=== PATIENT | male | born 1935 | race Caucasian/White ===

== ENCOUNTER → 2016-11-16 | Outpatient (CLI) | payer OTHER | LOC: FIMAGING 18:42 | PROVIDERS: ATTEND Physician Assistant | DX: M23.341 Other meniscus derangements, anterior horn of lateral meniscus, right knee (principal); M23.221 Derangement of posterior horn of medial meniscus due to old tear or injury, right knee; M25.461 Effusion, right knee; M23.41 Loose body in knee, right knee; M22.41 Chondromalacia patellae, right knee ==

== ENCOUNTER → 2016-12-11 | Outpatient (CLI) | payer OTHER | LOC: BMCIMAGING 14:31 | PROVIDERS: ATTEND Internal Medicine | DX: R06.6 Hiccough (principal); J44.9 Chronic obstructive pulmonary disease, unspecified ==

== ENCOUNTER 2017-01-06 08:36 | Inpatient (IN) | payer OTHER ==
[~2017-01-06 08:36] MED LIST: ACETAMINOPHEN 325 MG TAB PO ONE; CEFAZOLIN 2 GM/DEXTR 100 ML IV ONE; CHLORHEXIDINE GLUC HIBICLENS 118 ML BTL TP ONE; DEXAMETHASONE 4 MG/ML VIAL IVP ONE; FAMOTIDINE 20 MG TAB PO ONE; ROPI/epiNEPH/KETOROLAC JOINT COCKTAIL IU ONE; TRANEXAMIC ACID 3,000 MG in NS 50 ML IRR ONE; TRANEXAMIC ACID 3,000 MG/50 ML BAG IRR ONE; VANCOMYCIN 1 GM VIAL ONE
[2017-01-06] MEDS ORDERED: fentaNYL 100 MCG/2 ML INJ ONE ×2 (09:58→13:04)
[2017-01-06] MEDS ORDERED: PROPOFOL/EMULSION 500 MG/50 ML BOTTLE IV ONE (10:00)
[2017-01-06] MEDS ORDERED: FAMOTIDINE 20 MG TAB ONE (10:11)
[2017-01-06] MEDS ORDERED: CEFAZOLIN 2 GM/DEXTROSE/100 ML BAG IV ONE (10:11)
[2017-01-06] MEDS ORDERED: ACETAMINOPHEN 325 MG TAB ONE (10:11)
[2017-01-06] MEDS ORDERED: DEXAMETHASONE 4 MG/ML VIAL ONE (10:11)
[2017-01-06] MEDS ORDERED: LR 1,000 ML IV ONE (10:32)
[2017-01-06] MEDS ORDERED: MIDAZOLAM 2 MG/2 ML VIAL ONE (10:53)
[2017-01-06] MEDS ORDERED: ONDANSETRON 4 MG/2 ML VIAL ONE (11:34)
[2017-01-06] MEDS ORDERED: PROMETHAZINE HCL 25 MG SUPPR PR PRN (12:37)
[2017-01-06] MEDS ORDERED: MAGNESIUM HYDROXIDE 30 ML UDCUP PO PRN (12:37)
[2017-01-06] MEDS ORDERED: ONDANSETRON 4 MG/2 ML VIAL IVP PRN (12:37)
[2017-01-06] MEDS ORDERED: LACTULOSE 20 GM/30 ML UDCUP PO PRN (12:37)
[2017-01-06] MEDS ORDERED: PROMETHAZINE HCL 25 MG/ML INJ IVP PRN (12:37)
[2017-01-06] MEDS ORDERED: PHARMACY PAIN CONSULT 1 EA MISC PRN (12:37)
[2017-01-06] MEDS ORDERED: DIPHENOXYLATE/ATROPINE LOMOTIL 1 TAB PO PRN (12:37)
[2017-01-06] MEDS ORDERED: diphenhydrAMINE 25 MG CAP PO PRN (12:37)
[2017-01-06] MEDS ORDERED: ONDANSETRON DISINTEGRATING 4 MG TAB PO PRN (12:37)
[2017-01-06] MEDS ORDERED: BISACODYL 10 MG SUPP PR PRN (12:37)
[2017-01-06] MEDS ORDERED: METOCLOPRAMIDE 10 MG/2 ML VIAL IVP PRN (12:37)
--- NOTE | 2017-01-06 12:37 | POSTOPPROG ---
Post Op Note Date of Operation: 01/06/17 Surgeon: Jose Miguel Woodson Endocrinology Teacher: ari woodson Anesthesiologist: dr. neves Anesthesia: Spinal, Other (Specify) (adductor canal block) Pre-op Diagnosis: right knee OA Post-op Diagnosis: same Indication: right knee pain due to OA that failed conservative measures Procedure: R TKA Findings: severe knee OA Inf/Abcess present in the surg proc area at time of surgery?: No EBL: 50-100
[2017-01-06] MEDS ORDERED: LR 1,000 ML IV SCH (13:00)
[2017-01-06] MEDS ORDERED: HYDROmorphONE/DILAUDID 1 MG/ML SYR ONE (13:51)
[2017-01-06] MEDS: oxyCODONE IR 5 MG TAB PO PRN (16:25)
[2017-01-06] MEDS: amLODIPine BESYLATE 5 MG TAB PO SCH (17:36)
[2017-01-06] MEDS: ACETAMINOPHEN 325 MG TAB PO SCH ×2 (17:36→22:30)
[2017-01-06] MEDS: ATORVASTATIN CALCIUM 10 MG TAB PO SCH (17:36)
[2017-01-06] MEDS: ceFAZolin 2 GM/DEXTROSE 100 ML IV SCH (18:00)
[2017-01-06] MEDS ORDERED: NON-FORMULARY NEW DRUG (Fluticasone Nasal [Flonase Nasal Spray] 2 SPRAYS) NASAL SCH (21:00)
[2017-01-06] MEDS: ASPIRIN 325 MG TAB PO SCH (22:30)
[2017-01-06] MEDS: FAMOTIDINE 20 MG TAB PO SCH (22:31)
[2017-01-06] MEDS: FERROUS SULFATE 325 MG TAB PO SCH (22:31)
[2017-01-06] MEDS: SENNOSIDES/DOCUSATE SODIUM TAB PO SCH (22:31)
[2017-01-06] MEDS: FLUTICASONE NASAL 120 SPRAYS/16 GM MDI EACHNARE SCH (22:35)
[2017-01-06] MEDS: TEMAZEPAM 15 MG CAP PO PRN (23:23)
[2017-01-07] MEDS: oxyCODONE IR 5 MG TAB PO PRN ×4 (01:03→22:21)
[2017-01-07] MEDS: ceFAZolin 2 GM/DEXTROSE 100 ML IV SCH (03:16)
[2017-01-07 05:28] LABS: HEMATOCRIT 34.2 % (40.0-51.0); HEMOGLOBIN 12.4 g/dL (13.7-17.5)
[2017-01-07 05:35] LABS: ANION GAP 10 mEq/L (8-16); CALCIUM 8.7 mg/dL (8.5-10.4); CARBON DIOXIDE 23 mEq/l (22-31); CHLORIDE 93 mEq/L (97-110); CREATININE 0.9 mg/dL (0.7-1.3); GLOMERULAR FILTRATION RATE > 60; GLUCOSE 112 mg/dL (70-100); POTASSIUM 4.1 mEq/L (3.5-5.2); SODIUM 126 mEq/L (134-144)
--- NOTE | 2017-01-07 05:45 | GOP ---
[f rep st] OPERATIVE REPORT DATE OF OPERATION: 01/06/2017 SURGEON: Leonarda Coleman MD BRICK STACKER: RADHA Sharp. ANESTHESIA: Spinal. PREOPERATIVE DIAGNOSIS: Right knee osteoarthritis. POSTOPERATIVE DIAGNOSIS: Right knee osteoarthritis. PROCEDURE PERFORMED: Right total knee arthroplasty. FINDINGS: Severe lateral and PF DJD ESTIMATED BLOOD LOSS: 30 cc. INDICATIONS: This is an 81-year-old male with severe and progressive pain and deformity of the right knee unresponsive to conservative care. Risks and benefits of the surgical intervention were explained in detail. DESCRIPTION OF PROCEDURE: The patient was brought to the operative room and placed on the table in the supine position. Spinal anesthesia was induced without difficulty. A pneumatic tourniquet was applied about the right proximal thigh, and the leg was prepped and draped in a sterile fashion. The leg medina was applied. After exsanguination by elevation the tourniquet was inflated to 275 mm of mercury. Incision was made anterior medial from the tibial tuberosity to a point 2 cm proximal to the superior pole of the patella. Medial parapatellar arthrotomy was carried out from the superior pole of the patella and posteriorly in line with the fibers of the Type 2 VMO. The medial collateral ligament was elevated and the infrapatellar fat pad was resected. The patella was everted and the articular surface was excised. A 38 mm patellar button was placed. The distal femoral guide hole was drilled and the 60 degree alignment kyle was placed. A 10 mm distal femoral cut was made without difficulty. Attention was turned to the tibia and a standard 6 mm cut based on the medial tibia condyle was performed. The tibial articular surface was excised without difficulty. Attention was turned back to the femur and a size 6 femoral cutting block was positioned. Anterior, posterior, and chamfer cuts were made, followed by the intercondylar box cut. The knee was extended and the remnants of the medial and lateral meniscus were excised. The posterior capsule was injected with ropivacaine, epinephrine and Toradol. A size 6 tibial tray was positioned. Trial reduction was then carried out. There was excellent range of motion, alignment, and stability using the 9 mm polyethylene. All trials were then removed. The joint was thoroughly irrigated and carefully dried. Two packages of cement and 2 grams of vancomycin were mixed in the vacuum mixer and placed on the fixation surfaces of all surfaces of the components. The components were implanted and all excess cement was thoroughly removed. The permanent 9 mm polyethylene was placed without difficulty. The tourniquet was deflated and all bleeders were coagulated. The wound was thoroughly irrigated and closed using interrupted sutures of 2-0 Vicryl for the joint capsule. The subcu was closed with 3-0 Vicryl and the skin with 4-0 Monocryl. Dermabond and Steri-Strips were applied followed by a compressive dressing. The patient was then moved from the operating room to the recovery room in good condition, having tolerated the procedure well. TOURNIQUET: 275 mmHg. PATHOLOGY: Severe lateral and patellofemoral osteoarthritis. /[id number]/MODL MTDD
[2017-01-07] MEDS: PANTOPRAZOLE SODIUM 40 MG TAB PO SCH (06:22)
[2017-01-07] MEDS: ACETAMINOPHEN 325 MG TAB PO SCH ×4 (06:22→22:21)
[2017-01-07] MEDS ORDERED: NON-FORMULARY NEW DRUG (Omeprazole [Prilosec 20 Mg] 20 MG) PO SCH (07:30)
--- NOTE | 2017-01-07 08:28 | SOAPPROG ---
SOAP Progress Note Assessment/Plan: Assessment: Patient is doing well POD 1 s/p R TKA Pain management: pain is well controlled on oral pain meds. VTE ppx: recommend aspirin daily for 3 weeks, cont ISRAEL and SCDs Anemia: level is expected initially postop. Asymptomatic. Continue to monitor D/c planning: d/c to home today pending release from PT, plan for urinary retention urinary retention: will consult urology for assistance managing postop urinary retention. Patient has been straight cath'd twice and has not urinated since surgery. Hyponatremia: recommend restricting fluid intake 1L per day. Na today 126 Plan: 01/07/17 08:25 Subjective: Misha is doing well from a knee standpoint, but is having urinary retention issues. Denies SOB, chest pain and N/V. Objective: Vital Signs Temp Pulse Resp BP Pulse Ox 36.4 C 70 16 124/68 H 97 01/07/17 04:28 01/07/17 04:28 01/07/17 04:28 01/07/17 04:28 01/07/17 04:28 Laboratory Results 01/07/17 05:06 01/07/17 05:06 01/06/17 01/07/17 01/08/17 05:59 05:59 05:59 Intake Total 2490 Output Total 1380 Balance 1110 RLE: incision dressing is clean and dry, NVI, +pf/df ICD10 Worksheet Patient Problems: Problems Problem Status Onset Primary localized osteoarthritis of right knee Acute
[2017-01-07] MEDS: SENNOSIDES/DOCUSATE SODIUM TAB PO SCH ×2 (09:36→22:09)
[2017-01-07] MEDS: ASPIRIN 325 MG TAB PO SCH (09:36)
[2017-01-07] MEDS: FAMOTIDINE 20 MG TAB PO SCH ×2 (09:36→22:10)
[2017-01-07] MEDS: LISINOPRIL 20 MG TAB PO SCH (09:36)
[2017-01-07] MEDS: valACYclovir 500 MG TAB PO SCH (09:37)
[2017-01-07] MEDS: FLUTICASONE NASAL 120 SPRAYS/16 GM MDI EACHNARE SCH ×2 (09:38→22:26)
[2017-01-07] MEDS: POLYETHYLENE GLYCOL 3350 17 GM PKT PO PRN ×2 (09:41→09:45)
[2017-01-07] MEDS: CYCLOBENZAPRINE 10 MG TAB PO PRN ×2 (10:01→18:14)
--- NOTE | 2017-01-07 12:54 | SOAPPROG ---
SOAP Progress Note Assessment/Plan: Assessment: Postop urinary retention - see dictated consultation (# [id number]) Plan: Discharge w/ indwelling Le. Removal at home on Wednesday AM, FU thereafter to be dictated on subsequent ability to void. Objective: Vital Signs Temp Pulse Resp BP Pulse Ox 36.6 C 77 16 135/75 H 98 01/07/17 11:25 01/07/17 11:25 01/07/17 11:25 01/07/17 11:25 01/07/17 11:25 Laboratory Results 01/07/17 05:06 01/07/17 05:06 01/06/17 01/07/17 01/08/17 05:59 05:59 05:59 Intake Total 2490 Output Total 1380 Balance 1110 ICD10 Worksheet Patient Problems: Problems Problem Status Onset Primary localized osteoarthritis of right knee Acute
--- NOTE | 2017-01-07 14:00 | GCON ---
[f rep st] CONSULTATION UROLOGY CONSULTATION NOTE DATE OF CONSULTATION: 01/07/2017 REFERRING PHYSICIAN: Leonarda Coleman MD REASON FOR CONSULTATION: Postoperative urinary retention. HISTORY: This is an 81-year-old gentleman who is well known to my practice with a longstanding hist ory of incomplete urinary emptying and partial retention. He underwent a right total knee arthropla sty yesterday and has been unable to void since then. He was initially on straight catheterization, but was unable to void between those episodes. Le catheter was then inserted which the patient has indwelling at this time. The patient did undergo an inguinal herniorrhaphy late last year, and did not have any issues with postoperative urinary retention at that time. His past urologic history is notable for long-standing partial retention, with residuals ranging fro m 400 to greater than 800 cc. He has no evidence of outflow obstruction based on prior cystoscopy. He has previously undergone open suprapubic subtotal prostatectomy, approximately 20 years ago and, more recently, transurethral resection of bladder neck contracture, in September 2012. His urine pa rtial retention has persisted despite the most recent procedure. The patient denies any history of dysuria, gross hematuria. No recent treatment for UTIs. He has been experiencing nocturia typicall y twice nightly, which is his long-standing baseline. PAST MEDICAL HISTORY: Notable for gout, hypertension, high cholesterol, hypothyroidism, mitral valv e disorder, osteoporosis, peripheral neuropathy, sleep apnea, partial urinary retention. PAST SURGICAL HISTORY: Includes right total knee arthroplasty yesterday (as above), inguinal hernio rrhaphy approximately May 2016, transurethral resection of bladder neck contracture in September 2012, open subtotal suprapubic prostatectomy in May 1997. ADMISSION MEDICATIONS: Include Norvasc 5 mg daily, aspirin 325 mg daily, Lipitor 10 mg daily, Celeb craig 200 mg daily, Flexeril 10 mg q.8 hours p.r.n., Benadryl 25 mg q.4 hours p.r.n., Lomotil 1 p.o. q .i.d. p.r.n., Pepcid 20 mg b.i.d., iron sulfate 325 mg q.h.s., lactulose 20 mg t.i.d. p.r.n., Zestri l 20 mg daily, Restoril 15 mg q.h.s. p.r.n., Valtrex 500 mg daily. Additional home medications include Cialis 20 mg p.r.n., Flonase, oxycodone p.r.n. pain. MEDICAL ALLERGIES: None known. FAMILY HISTORY: Not contributory. SOCIAL HISTORY: The patient is single and lives in the [place] area. 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 He has 2 grown children, including 1 son who lives in [place]. He has a 20-pac k-year smoking history from use prior to age 34. He consumes 1-2 alcoholic drinks weekly. REVIEW OF SYSTEMS: Unremarkable, other than mentioned above in the HPI and Past Medical History. PHYSICAL EXAMINATION: GENERAL: Well-developed, well-nourished white male, lying upright in bed, in no acute distress. VITAL SIGNS: Blood pressure 135/75, pulse 77, respirations 16, oxygen saturati on 98% on room air, temperature 36.6 Celsius. HEENT: Normocephalic, atraumatic. NECK: Supple. H EART: Regular rate. CHEST: Unlabored respiratory pattern. ABDOMEN: Soft without palpable abnorm alities. GENITALIA: A 16-Thai Le catheter in place, draining clear urine. NEUROLOGIC: He is alert and oriented. He answers all questions appropriately with normal mood and affect. PERTINENT LABORATORY: On 01/07/2017, chemistry panel notable for a sodium 126 with normal renal fun ction (creatinine 0.9). IMPRESSION: Postoperative urinary retention in this patient with history of significant baseline pa rtial urinary retention. PLAN: 1. Continue indwelling Le catheter following discharge. 2. Instructions have been provided to have the nursing staff teach the patient on Le catheter re moval next Wednesday morning at 0800. I will have my office touch base with him later that day to make sure he is adequately voiding spontaneously. If not, he will come to the office for Le catheter replacement later on Wednesday. Thank you for this consultation. /[id number]/MODL
[2017-01-07] MEDS: ATORVASTATIN CALCIUM 10 MG TAB PO SCH (18:09)
[2017-01-07] MEDS: amLODIPine BESYLATE 5 MG TAB PO SCH (18:10)
[2017-01-07] MEDS: TEMAZEPAM 15 MG CAP PO PRN (22:09)
[2017-01-07] MEDS: FERROUS SULFATE 325 MG TAB PO SCH (22:10)
[2017-01-08 04:53] LABS: HEMATOCRIT 34.9 % (40.0-51.0); HEMOGLOBIN 12.3 g/dL (13.7-17.5)
[2017-01-08 05:25] LABS: ANION GAP 6 mEq/L (8-16); CALCIUM 9.1 mg/dL (8.5-10.4); CARBON DIOXIDE 24 mEq/l (22-31); CHLORIDE 101 mEq/L (97-110); GLOMERULAR FILTRATION RATE > 60; GLUCOSE 105 mg/dL (70-100); POTASSIUM 4.4 mEq/L (3.5-5.2); SODIUM 131 mEq/L (134-144)
[2017-01-08] MEDS: ACETAMINOPHEN 325 MG TAB PO SCH ×2 (06:26→12:23)
[2017-01-08] MEDS: CYCLOBENZAPRINE 10 MG TAB PO PRN (08:01)
[2017-01-08] MEDS: SENNOSIDES/DOCUSATE SODIUM TAB PO SCH (08:02)
[2017-01-08] MEDS: ASPIRIN 325 MG TAB PO SCH (08:02)
[2017-01-08] MEDS: FAMOTIDINE 20 MG TAB PO SCH (08:02)
[2017-01-08] MEDS: oxyCODONE IR 5 MG TAB PO PRN ×2 (08:02→15:08)
[2017-01-08] MEDS: valACYclovir 500 MG TAB PO SCH (08:02)
[2017-01-08] MEDS: PANTOPRAZOLE SODIUM 40 MG TAB PO SCH (08:02)
[2017-01-08] MEDS: LISINOPRIL 20 MG TAB PO SCH (08:03)
[2017-01-08] MEDS: FLUTICASONE NASAL 120 SPRAYS/16 GM MDI EACHNARE SCH (08:09)
[2017-01-08] MEDS: POLYETHYLENE GLYCOL 3350 17 GM PKT PO PRN (08:17)
[2017-01-08 08:58] VITALS: RESP 18
--- NOTE | 2017-01-08 11:05 | PDIAF ---
- Diagnosis Diagnosis: Right knee OA Code Status: Full Code - Medication Management Discharge Medications: Medications to Continue on Transfer Ascorbic Acid [Vitamin C 500 mg (*)] 1,000 mg PO HS 09/20/12 [Last Taken ] Calcium Carbonate [Oyster Shell Calcium 500 mg (*)] 500 mg PO BIDMEAL 09/20/12 [ Last Taken 12/30/16] Lisinopril [Zestril 20 mg (*)] 20 mg PO DAILY 09/20/12 [Last Taken 01/05/17] Omeprazole [Prilosec 20 mg] 20 mg PO DAILYAC 09/20/12 [Last Taken 01/06/17] Valacyclovir HCl [Valacyclovir] 500 mg PO DAILY 09/20/12 [Last Taken 01/06/17] amLODIPine BESYLATE [Norvasc 5 mg (*)] 5 mg PO DAILY@1830 09/20/12 [Last Taken 01/05/17] Fluticasone Nasal [Flonase Nasal [place]] 2 sprays NASAL BID 05/18/16 [Last Taken 01/06/17] Herbals/Supplements -Info Only 1 ea PO DAILY 05/18/16 [Last Taken 12/30/16] Tadalafil [Cialis] 20 mg PO DAILY PRN 05/18/16 [Last Taken 12/26/16] Acetaminophen [Tylenol 325mg (*)] 325 mg PO DAILY PRN 12/14/16 [Last Taken 01/05] Atorvastatin Calcium [Lipitor 10 mg (*)] 10 mg PO DAILY@1830 12/14/16 [Last Taken 01/06/17] Cholecalciferol Vit D3 [Vitamin D3 (*)] 1,000 units PO BID 12/14/16 [Last Taken 12/30/16] Ferrous Sulfate [Ferrous Sulf 325 MG (*)] 325 mg PO HS 12/14/16 [Last Taken 01/16] Multivitamins [Multivitamin (*)] 1 each PO DAILY 12/14/16 [Last Taken 12/30/16] Acetaminophen [Tylenol 325mg (*)] 650 mg PO Q6HRS #0 tab 01/06/17 [Last Taken Unknown] Aspirin [Aspirin 325 mg (*)] 325 mg PO DAILY #0 tab 01/06/17 [Last Taken Unknown ] Ondansetron Odt [Zofran Odt 4 mg (*)] 4 mg PO Q4HRS PRN #0 tab 01/06/17 [Last Taken Unknown] Sennosides/Docusate Sodium [Senokot-S] 1 - 2 tab PO BID #0 tab 01/06/17 [Last Taken Unknown] celeCOXIB [Celebrex (*)] 200 mg PO DAILY #0 cap 01/06/17 [Last Taken Unknown] oxyCODONE IR [Oxycodone Ir (*)] 5 - 10 mg PO Q3HRS PRN #0 tab 01/06/17 [Last Taken Unknown] Discharge Medications: Refer to the Discharge Home Medication list for PRN reason. PICC Care - Routine: N/A - Orders Services needed: Physical Therapy (At SNF) Diet Recommendation: no restrictions on diet Diet Texture: Regular Texture Diet Le: Not applicable Andreas Stockings Discontinue Date: 2 weeks Wound Care Instructions: keep clean and dry. You may shower with the waterproof dressing. Activity/Weight Bearing Restrictions: Weight bearing as tolerated. - Follow Up Care Current Providers and Referrals: Jose Miguel Coleman MD [Medical Doctor] - 01/25/17 12:45 pm Jackie Razo MD [Primary Care Provider] -
[2017-01-08 11:46] VITALS: BP 101/55; PULSE 83; TEMP 97.5; O2SAT 96
== END 2017-01-08 15:31 | DRG 470 ==
LOC: F3N 08:36
PROVIDERS: ADMIT Orthopaedic Surgery; ATTEND Orthopaedic Surgery
PROC: 0SRC0J9 Replacement of Right Knee Joint with Synthetic Substitute, Cemented, Open Approach (ICD-10-PCS; principal; 2017-01-06 11:15)
DX: M17.11 Unilateral primary osteoarthritis, right knee (principal); R33.8 Other retention of urine; I10 Essential (primary) hypertension; E78.00 Pure hypercholesterolemia, unspecified; E03.9 Hypothyroidism, unspecified; M81.0 Age-related osteoporosis without current pathological fracture; G47.33 Obstructive sleep apnea (adult) (pediatric)
CPT/HCPCS: 97110-GP; 97116-GP; 97161-GP; 97166-GO; 97530-GP; 97535-GO; C1713; G8978-GP-CJ; G8979-GP-CI; G8987-GO-CK; G8988-GO-CI; G8989-GO-CJ; J0171; J0690; J1100; J1170; J1885; J2250; J2405; J2704; J2795; J3010; J3370

== ENCOUNTER → 2017-01-28 | Outpatient (CLI) | payer OTHER | LOC: FIMAGING 13:44 | PROVIDERS: ATTEND Internal Medicine | DX: M79.89 Other specified soft tissue disorders (principal); Z98.890 Other specified postprocedural states ==